=== PATIENT | female | born 1990 | race American Indian/Alaskan Native ===

== ENCOUNTER 2017-01-18 02:45 | Emergency (ER) | payer SELFPAY ==
[2017-01-18 02:55] VITALS: BP 119/79
== END 2017-01-18 04:20 | disposition left against medical advice (07) ==
LOC: ED 02:45
DX: M27.2 Inflammatory conditions of jaws (principal); Z53.21 Procedure and treatment not carried out due to patient leaving prior to being seen by health care provider

== ENCOUNTER 2018-10-21 15:03 | Emergency (ER) | payer SELFPAY ==
[2018-10-21 15:28] VITALS: BP 128/88
--- NOTE | 2018-10-21 15:30 | Emergency Department Report ---
Chief Complaint: Vaginal Bleeding Stated Complaint: BLOOD TEST/ Time Seen by Provider: 10/21/18 15:26 - HPI History of Present Illness: This is a 28 y.o. F that presents to the ER with spotting and nausea. LMP 09/14/18, G0 Concerned of possible . Negative home test 2 weeks ago. - Exam Vital Signs: Vital Signs 10/21/18 15:26 Temperature 98.5 F Pulse Rate 100 H Respiratory 16 Rate Blood Pressure 128/88 [Right] O2 Sat by Pulse 100 Oximetry MSE screening note: Focused history and physical exam performed. Due to findings the following was ordered: labs ED Disposition for MSE Condition: Stable
[2018-10-21 16:45] LABS: HCG Qualitative,Urine Negative (Negative)
[2018-10-21 16:51] LABS: Bacteria,Urine 2+ /HPF (Negative); Bilirubin,Urine NEG (Negative); Blood,Urine LG (Negative); Color,Urine Yellow (Yellow); Mucus,Urine 3+ /HPF; Protein,Urine <15 mg/dL mg/dL (Negative); Urobilinogen,Urine < 2.0 mg/dL (<2.0)
== END 2018-10-21 19:27 | disposition left against medical advice (07) ==
LOC: ED 15:03
DX: Z32.00 Encounter for pregnancy test, result unknown (principal); Z53.21 Procedure and treatment not carried out due to patient leaving prior to being seen by health care provider
CPT/HCPCS: 81001; 81025